=== PATIENT | male | born 1975 | race Caucasian/White ===

== ENCOUNTER → 2018-09-01 10:29 | Outpatient (CLI) | payer OTHER, SELFPAY ==
[2017-07-02 21:08] VITALS: BMI 33.0
[2018-09-01 12:27] LABS: AST(SGOT) 26 U/L (15-37); Alanine Aminotransfer ALT/SGPT 44 U/L (16-61); Albumin, Serum 3.7 g/dL (3.2-5.0); Alkaline Phosphatase 149 U/L (45-117); Anion Gap 7 (5-15); BUN 19 mg/dL (7-18); BUN/Creat Ratio 25.5 RATIO (10-20); Calcium,Total 8.7 mg/dL (8.5-10.1); Chloride 106 mmol/L (98-107); Cholesterol 102 mg/dL (200); Creatinine, Serum 0.75 mg/dL (0.70-1.30); EST Glomerular Filtration Rate 121 mL/min (>60); Est Glom Filt Rate - Afr Amer 147 mL/min (>60); Globulin 3.6 g/dL (2.2-4.2); Glucose 167 mg/dL (74-106); High Density Lipoprotein 31 mg/dL; Potassium 4.3 mmol/L (3.5-5.1); Protein, Total 7.3 g/dL (6.4-8.2); Sodium Level 139 mmol/L (136-145); Triglycerides 52 mg/dL; Very Low Density Lipoprotein 10 mg/dL (5-40)
[2018-09-01 12:31] LABS: Microalbumin,Random Urine 11.2 mg/L (NO RANGE EST.); Microalbumin:Creatinine Ratio 10.4 mg/g CRE (<30 mg/g CRE)
--- OUTSIDE RECORDS SUMMARY | 2018-10-27 06:38 | XMS RPT_ITS ---
:1975 Author Organization OHIP Care Team Providers Name Role Phone DR JUVENTINO MORFIN Admitting Unavailable SHELBIE, DR JUVENTINO George Attending Unavailable NO, DOCTOR ON Referring Unavailable DR JUVENTINO MORFIN Primary Care Unavailable SHITAL ARAUJO MD Consulting Unavailable PROVIDER, UNKNOWN Consulting Unavailable PROVIDER, UNKNOWN Consulting Unavailable Shital Araujo Attending Unavailable Shital Araujo Referring Unavailable Shital Araujo Primary Care Unavailable PROBLEMS PROBLEMS No Problem Records FoundPROCEDURES PROCEDURES No Procedure Records FoundRESULTS RESULTS COMPREHENSIVE METABOLIC Collected: 09/01/2018 Status: F Source: [facility] 10:39 AM [facility] REPOSITORY TYPE CODE TESTS RESULT OUT OF RANGE REFERENCE UNITS LAB L501.0100 74-106 mg/dL High GLU 167 Result Comment: Fasting Glucose result greater than or equal to 126 mg/dL suggests DIABETES MELLITUS per A.D.A. criteria. Please note revised GLUCOSE reference range effective 2017. LAB L501.1000 7-18 mg/dL High BUN 19 LAB L501.1100 0.70-1.30 mg/dL Normal CREAT,SERUM 0.75 Result Comment: The validity of the calculated GFR AND GFRAA in patients over 70 years has not been determined. Clinical correlation is essential. LAB L501.1110 >60 mL/min Normal EST GFR 121 Result Comment: Non- GFR Calc LAB L501.1115 >60 mL/min Normal EST GFR - AA 147 Result Comment: GFR Calc LAB L501.1300 10-20 RATIO High BUN/CRE 25.5 LAB L501.1500 6.4-8.2 g/dL T Normal PROT 7.3 LAB L501.1800 3.2-5.0 g/dL Normal ALB 3.7 LAB L501.1950 2.2-4.2 g/dL Normal GLOB 3.6 LAB L501.2000 0.9-2.4 RATIO Normal A/G 1.0 LAB L501.2200 8.5-10.1 mg/dL CA Normal 8.7 LAB L501.4100 15-37 U/L Normal AST 26 LAB L501.4305 45-117 U/L High ALK P 149 LAB L501.4405 16-61 U/L Normal ALT 44 LAB L501.4600 0.20-1.00 mg/dL T Normal BILI 0.60 LAB L501.5300 136-145 mmol/L NA Normal 139 LAB L501.5600 3.5-5.1 mmol/L K Normal 4.3 LAB L501.5900 98-107 mmol/L CL Normal 106 LAB L501.6100 21.0-32.0 mmol/L Normal CO2 26.0 LAB L501.6200 5-15 Normal GAP 7 Performed By: #### L500.4050, L500.4100 #### [facility] [address] [place], [place], [address] LIPID PROFILE Collected: 09/01/2018 Status: F Source: [place] 10:39 AM [facility] REPOSITORY TYPE CODE TESTS RESULT OUT OF RANGE REFERENCE UNITS LAB L501.4900 200 mg/dL Normal CHOL 102 Result Comment: <200 mg/dL Desirable 200-240 mg/dL Borderline >240 mg/dL High Risk LAB L501.5000 mg/dL Normal TRIG 52 Result Comment: The drugs N-Acetylcysteine and Metamizole may falsely depress this assay. Serum Triglycerides Reference Interval Normal <150 mg/dL Borderline high 150 - 199 mg/dL High 200 - 499 mg/dL Very High > or = 500 mg/dL LAB L501.6400 mg/dL Low HDL 31 Result Comment: The drugs N-Acetylcysteine and Metamizole may falsely depress this assay. Reference Range HDL <40 mg/dL Low HDL Cholesterol HDL >or= 60 mg/dL High HDL Cholesterol LAB L501.6500 0-130 mg/dL Normal LDL 61 LAB L501.6600 5-40 mg/dL Normal VLDL 10 Performed By: #### L500.4050, L500.4100 #### [facility] [address] [place], [address] MICROALB:CREAT Collected: 09/01/2018 Status: F Source: [place] [facility] 10:[address] [facility] TYPE CODE TESTS RESULT OUT OF RANGE REFERENCE UNITS LAB L501.1200 NO RANGE EST. mg/dL Normal UR CREAT 108.00 LAB L502.0500 NO RANGE EST. mg/L Normal 11.2 MICROALBUMIN ,UR LAB L502.0600 <30 mg/g CRE mg/g CRE Normal 10.4 MALB:CREAT Performed By: #### L502.0250 #### [facility] [address] [place], [address] EMERGENCY REPORT Observed: 06/05/2018 Status: F Source: [place]CD[place]NE[place] 7:[address] [facility] EMERGENCY ROOM REPORT NAME ACCOUNT SEX AGE ADMIT DISCHARGE PT MED. RECORD# NUMBER DATE DATE TYPE SHADY FARLEY [id number] M 42 06/01/18 06/01/18 3 [id number] ROOM: ER DATE OF : 1975 DICTATING PHYSICIAN: Juventino Morfin CHIEF COMPLAINT: Dental pain. HISTORY OF PRESENT ILLNESS: The patient states that he broke a tooth off a couple of months ago and has been babying it. However, over the past couple of days, he is getting some swelling and more pain to that area. He states that he needs to get the infection out before he can see the dentist. No fever or chills, nausea or vomiting. PAST MEDICAL HISTORY: Significant for a history of hypertension and diabetes. PAST SURGICAL HISTORY: No previous surgeries. MEDICATIONS: Per med rec list. ALLERGIES: He does not have any known allergies. SOCIAL HISTORY: He lives at home. He does not smoke or drink alcohol. He is employed, though states he is unable to go today because of the pain and swelling. PHYSICAL EXAMINATION: This is a 42-year-old mildly obese male alert, appropriate, does not appear toxic or in acute distress. There is no facial redness or swelling. Intraoral examination reveals some scattered cnsl-nn-rdwwfado caries. Left upper lateral incisor is fractured and decayed nearly to the gumline. There is no purulent drainage. There is some mild gingival swelling at the base and tenderness with palpation over that area. There are some other mild scattered caries and several previous teeth extracted. Gingiva appear generally good. Throat is normal without exudate. Neck is very supple without adenopathy. No other distress. Vital signs: Temperature 97.9, pulse 85, respirations 16, blood pressure 157/102. EMERGENCY DEPARTMENT COURSE AND TREATMENT: He was given a prescription for Pen-VK, ibuprofen 800 mg t.i.d., and a slip for work today. DIAGNOSIS: Dental caries with dental pain. PLAN/DISPOSITION: He is to follow up with his dentist in 3 to 5 days. Dictated By: Juventino Morfin MD Page 1 of 2 SHADY FARLEY Emergency Room Report 06/01/18 08:01 JOB #: [id number] Transcribed By: am 06/01/18 17:59 Electronically signed by: LEANDRA Morfin M.D. 06/05/18 07:02 Page 2 of 2 SHADY FARLEY Emergency Room Report PROGRESS Observed: 12/13/2017 Status: COMPLETED Source: [place] 11:52 AM [facility] REPOSITORY HNO ID: [id number] Author: Beth Moss Hardware Test Engineer Service: (none) Author Type: (none) Type: Progress Notes Filed: 12/13/2017 11:52 AM Note Text: Letter mailed to patient. PROGRESS Observed: 12/13/2017 Status: COMPLETED Source: [place] 11:50 AM [facility] REPOSITORY HNO ID: [id number] Author: Beth Moss Hardware Test Engineer Service: (none) Author Type: (none) Type: Progress Notes Filed: 12/13/2017 11:52 AM Note Text: Left detailed message for patient to return call #[phone] 3rd attempt. PROGRESS Observed: 12/06/2017 Status: COMPLETED Source: [place] 3:11 PM [facility] REPOSITORY HNO ID: [id number] Author: Beth Moss Cma Service: (none) Author Type: (none) Type: Progress Notes Filed: 12/13/2017 11:52 AM Note Text: Left detailed message for patient to return call #[phone]. PROGRESS Observed: 12/06/2017 Status: COMPLETED Source: [place] 3:11 PM [facility] REPOSITORY HNO ID: [id number] Author: Beth Moss Cma Service: (none) Author Type: (none) Type: Progress Notes Filed: 12/13/2017 11:52 AM Note Text: 12/01 - contact made - Left message for patient to return call #[phone] PROGRESS Observed: 12/01/2017 Status: COMPLETED Source: [place] 3:05 PM [facility] REPOSITORY HNO ID: [id number] Author: Beth [place] Hardware Test Engineer Service: (none) Author Type: (none) Type: Progress Notes Filed: 12/13/2017 11:52 AM Note Text: [facility] CARE GAP REGISTRY DOCUMENTATION (OUTSIDE TEAMLET) Provider Action/FYI: PSR Action/FYI: Patient identified by name and date of . Last BP/Labs: Blood Pressure: Last 3 Encounter BP Readings: Date: BP: 06/01/2017 148/88 07/14/2016 136/86 06/11/2014 140/90 Lipids: Cholesterol, Total (mg/dL) Date Value 06/14/2014 109 HDL Cholesterol (mg/dL) Date Value 06/14/2014 29 LDL Cholesterol (mg/dL) Date Value 06/14/2014 69 Triglyceride (mg/dL) Date Value 06/14/2014 57 HGB A1C: No results found for: HBA1C TSH: No results found for: TSH) ? Patient has the following care gap registry disease diagnosis:NONE - elevated Bp ? Patient hasn't been seen since 2013 ? Patient has the following open care gaps:none. Elevated bp ? Last office visit: 06/11/2014 ? Future office visit:Physical next available Health Maintenance Due: INFLUENZA(1) due on 06/03/2017 Bethjuliano Moss [facility] CNPTOUTREACH Observed: 12/01/2017 Status: COMPLETED Source: [place] 12:00 AM [facility] REPOSITORY Patient Outreach (INTMWS) MIGUELITOSHADY Shane ([id number]) 1975 M Date Time Provider Department 12/01/17 [facility] INTMWS During your visit today, we recorded the following information about you: Beth Moss [facility] 12/13/2017 11:52 AM Signed [facility] CARE GAP REGISTRY DOCUMENTATION (OUTSIDE TEAMLET) Provider Action/FYI: PSR Action/FYI: Patient identified by name and date of . Last BP/Labs: Blood Pressure: Last 3 Encounter BP Readings: Date: BP: 06/01/2017 148/88 07/14/2016 136/86 06/11/2014 140/90 Lipids: Cholesterol, Total (mg/dL) Date Value 06/14/2014 109 HDL Cholesterol (mg/dL) Date Value 06/14/2014 29 LDL Cholesterol (mg/dL) Date Value 06/14/2014 69 Triglyceride (mg/dL) Date Value 06/14/2014 57 HGB A1C: No results found for: HBA1C TSH: No results found for: TSH) ? Patient has the following care gap registry disease diagnosis:NONE - elevated Bp ? Patient hasn't been seen since 2013 ? Patient has the following open care gaps:none. Elevated bp ? Last office visit: 06/11/2014 ? Future office visit:Physical next available Health Maintenance Due: INFLUENZA(1) due on 06/03/2017 Beth Moss Hardware Test Engineer Beth [place] [facility] 12/13/2017 11:52 AM Signed 12/01 - contact made - Left message for patient to return call #[phone] Beth [place] 12/13/2017 11:52 AM Signed Left detailed message for patient to return call #[phone]. Beth [place] 12/13/2017 11:52 AM Signed Left detailed message for patient to return call #[phone] 3rd attempt. Beth [facility] 12/13/2017 11:52 AM Signed Letter mailed to patient. Allergies As of Date: 12/01/2017 (No Known Allergies) Date Reviewed: 06/01/2017 Reviewed by: Denis BrownleeHebrew Rehabilitation CenterDeyanira Muniz - Fully Assessed Reason for Visit: PHMA/Care Gap Outreach [3975] Problem List As Of Date 12/01/2017 Noted Resolved Elevated BP [VMV3824] INVALID FOR* More... Tobacco abuse disorder [Z72.0] INVALID FOR* Obesity (BMI 35.0-39.9 without comorbidity) [E6*INVALID FOR* More... Letter Text MOJGAN AGARWAL MD [address] [facility] [id number] [phone] Beth Moss Cma, [facility].A. December 13, 2017 Shady Farley [id number] [address] Dear Mr. Farley In an effort to serve your healthcare needs, it has come to the attention of MOJGAN AGARWAL MD, your Primary Care Provider, that you are overdue for routine health care. We've attempted to contact you and have been unsuccessful. Please call the office at [phone] to schedule an appointment for Physical. In addition, you are due for the following health maintenance(s) Health Maintenance Due: INFLUENZA(1) due on 06/03/2017 If any of these routine health care items were completed by an outside facility, please have that office fax the results to [phone] Attn: MOJGAN AGARWAL MD or bring the records with you to your appointment. We will gladly update your record. If you have any questions, please feel free to call the office at [phone] or message us via [employer]. Thank you for choosing the [facility]. Sincerely, Beth Moss Cma, [facility] M.A. (electronically signed to expedite mailing) Encounter Status:Closed by BETH MOSS CMA on 12/13/17 ALLERGIES ALLERGIES DATE TYPE / CODE NAME / CODE REACTION SEVERITY SOURCE 07/02/2017 Drug No Known Unknown [place] Allergy/[id number](S Allergies/F[address] [facility] [place]) [address](RXNORM) Hospital Repository Miscellaneous No Known Moderate Alex Pomerene Allergy/[id number](S Allergies ([facility]) Modifier) Hospital (Qualifier Repository Value) ENCOUNTERS ENCOUNTERS ADMIT/DISCHARGE ACCOUNT ADMITTING ENCOUNTER LOCATION SOURCE NUMBER CLASS 09/01/2018 [id number] Ambulatory [facility] ing:MTLAB Repository 06/01/[id number] JUVENTINO MORFIN Emergency BuildinR Alexjuani Mcdonnell 8 C oom: ERBed: B [facility] Repository PAYERS PAYERS ENCOUNTER GUARANTOR PAYER SUBSCRIBER SOURCE 09/01/2018 SHADY Lynn Primary Insurance:DALJIT WERNER: Yasemin [id number] ARELY [facility] [id number], Number: [facility] [id number]: [id number] Repository Date:[id number] () [id number] [address]CG: 09/01/2018 Secondary NOT GIVENUNK Yasemin Insurance:SELF PAY [facility] Number: Effective Repository Date:2018-09-01 06/01/2018 SHADY WERNER: Primary Insurance:Suzette WERNER: Alex Mcdonnell [id number] [facility] Number: [id number] [facility] [id number] [address], Date:Plan Name:[address], Repository [place] [address]: [place] [address] ()
== END ==
PROVIDERS: Family Provider Family Medicine; PCP Family Medicine; Referring Provider Family Medicine; Visit Provider Family Medicine
DX: E11.65 Type 2 diabetes mellitus with hyperglycemia (principal)
CPT/HCPCS: 36415; 80053; 80061; 82043; 82570

== ENCOUNTER → 2019-05-12 09:02 | Outpatient (CLI) | payer OTHER, SELFPAY ==
[2017-07-02 21:08] VITALS: BMI 33.0
[2019-05-12 10:08] LABS: ALB/GLOB Ratio 1.1 RATIO (0.9-2.4); AST(SGOT) 21 U/L (15-37); Alanine Aminotransfer ALT/SGPT 40 U/L (16-61); Albumin, Serum 3.4 g/dL (3.2-5.0); Alkaline Phosphatase 160 U/L (45-117); Anion Gap 7 (5-15); BUN 16 mg/dL (7-18); BUN/Creat Ratio 20.2 RATIO (10-20); Calcium,Total 8.6 mg/dL (8.5-10.1); Chloride 106 mmol/L (98-107); Cholesterol 88 mg/dL (200); Creatinine, Serum 0.79 mg/dL (0.70-1.30); EST Glomerular Filtration Rate 113 mL/min (>60); Est Glom Filt Rate - Afr Amer 136 mL/min (>60); Globulin 3.2 g/dL (2.2-4.2); Glucose 279 mg/dL (74-106); High Density Lipoprotein 34 mg/dL; Potassium 4.1 mmol/L (3.5-5.1); Protein, Total 6.6 g/dL (6.4-8.2); Sodium Level 138 mmol/L (136-145); Triglycerides 56 mg/dL; Very Low Density Lipoprotein 11 mg/dL (5-40)
[2019-05-12 10:18] LABS: Hemoglobin A1c 8.5 % (4.2-6.3)
[2019-05-12 10:28] LABS: Microalbumin,Random Urine 39.7 mg/L (NO RANGE EST.); Microalbumin:Creatinine Ratio 27.6 mg/g CRE (<30 mg/g CRE)
== END ==
PROVIDERS: Family Provider Family Medicine; PCP Family Medicine; Referring Provider Family Medicine; Visit Provider Family Medicine
DX: E11.9 Type 2 diabetes mellitus without complications (principal)
CPT/HCPCS: 36415; 80053; 80061; 82043; 82570; 83036

== ENCOUNTER → 2020-11-29 10:50 | Outpatient (CLI) | payer OTHER, SELFPAY ==
[2020-11-29 12:38] LABS: Absolute Lymphocyte Count 1.66 X10^3/uL (0.83-4.51); Absolute Neutrophil Count 5.3 X10^3/uL (2.0-7.7); Basophil# 0.06 X10^3/uL; Basophil% 0.8 % (0-1); Eosinophil# 0.19 X10^3/uL; Eosinophils% 2.5 % (0-5); Hematocrit 45.2 % (40-54); Hemoglobin A1c 9.8 % (3.8-5.6); Lymphocyte # 1.66 X10^3/ul (4.0); Lymphocyte % 21.9 % (19-41); Mean Corp Hgb Conc 33.2 g/dL (32-36); Mean Corpuscular Hgb 28.6 pg (27.0-32.0); Mean Corpuscular Volume 86.1 fL (80-94); Mean Platelet Vol. 12.8 fl (6.2-12.0); Monocyte# 0.36 X10^3/uL; Monocyte% 4.7 % (0-10); NRBC Flagged by Analyzer 0 % (0-5); Neutrophil # 5.29 X10^3/uL (2.7-7.7); Neutrophil % 69.8 % (47-70); Platelet Count 141 K/mm3 (150-450); RBC Distribution Width CV 12.7 % (11.6-14.6); RBC Distribution Width SD 39.8 fl (35.1-43.9); Red Blood Count 5.25 M/mm3 (4.6-6.2); White Blood Count 7.6 K/mm3 (4.4-11.0)
[2020-11-29 13:02] LABS: ALB/GLOB Ratio 1.1 RATIO (0.9-2.4); AST(SGOT) 32 U/L (15-37); Alanine Aminotransfer ALT/SGPT 54 U/L (16-61); Albumin, Serum 3.7 g/dL (3.2-5.0); Alkaline Phosphatase 134 U/L (45-117); Anion Gap 6 (5-15); BUN 15 mg/dL (7-18); BUN/Creat Ratio 18.2 RATIO (10-20); Chloride 104 mmol/L (98-107); Cholesterol 123 mg/dL (200); Creatinine, Serum 0.82 mg/dL (0.70-1.30); EST Glomerular Filtration Rate 107 mL/min (>60); Est Glom Filt Rate - Afr Amer 129 mL/min (>60); Globulin 3.3 g/dL (2.2-4.2); Glucose 285 mg/dL (74-106); High Density Lipoprotein 40 mg/dL; Potassium 4.2 mmol/L (3.5-5.1); Sodium Level 136 mmol/L (136-145); Triglycerides 89 mg/dL; Very Low Density Lipoprotein 18 mg/dL (5-40)
[2020-11-29 14:12] LABS: Microalbumin,Random Urine 27.2 mg/L (NO RANGE EST.); Microalbumin:Creatinine Ratio 23.4 mg/g CRE (<30 mg/g CRE)
== END ==
PROVIDERS: PCP Family Medicine; Visit Provider Family Medicine
DX: I10 Essential (primary) hypertension (principal); E11.9 Type 2 diabetes mellitus without complications
CPT/HCPCS: 36415; 80053; 80061; 82043; 82570; 83036; 85025

== ENCOUNTER → 2021-06-16 06:55 | Outpatient (CLI) | payer OTHER, SELFPAY | PROVIDERS: PCP Family Medicine; Visit Provider Physician Assistant Surgical | DX: Z11.52 Encounter for screening for COVID-19 (principal) | CPT/HCPCS: 87635; U0005; U0003 ==

== ENCOUNTER → 2022-05-15 | Outpatient (CLI) | payer OTHER, SELFPAY ==
[2022-05-15 09:43] LABS: Absolute Lymphocyte Count 1.91 X10^3/uL (0.83-4.51); Absolute Neutrophil Count 5.3 X10^3/uL (2.0-7.7); Basophil# 0.07 X10^3/uL; Basophil% 0.9 % (0-1); Eosinophil# 0.24 X10^3/uL; Hematocrit 47.5 % (40-54); Hemoglobin 15.8 g/dL (13.0-16.5); Lymphocyte # 1.91 X10^3/ul (0.83-4.51); Lymphocyte % 23.5 % (19-41); Mean Corp Hgb Conc 33.3 g/dL (32-36); Mean Corpuscular Hgb 28.5 pg (27.0-32.0); Mean Corpuscular Volume 85.7 fL (80-94); Mean Platelet Vol. 11.9 fl (6.2-12.0); Monocyte# 0.54 X10^3/uL; Monocyte% 6.6 % (0-10); NRBC Flagged by Analyzer 0 % (0-5); Neutrophil # 5.32 X10^3/uL (2.7-7.7); Neutrophil % 65.4 % (47-70); Platelet Count 134 K/mm3 (150-450); RBC Distribution Width CV 13.2 % (11.6-14.6); Red Blood Count 5.54 M/mm3 (4.6-6.2); White Blood Count 8.1 K/mm3 (4.4-11.0)
[2022-05-15 10:11] LABS: AST(SGOT) 28 U/L (15-37); Alanine Aminotransfer ALT/SGPT 43 U/L (16-61); Albumin, Serum 3.7 g/dL (3.2-5.0); Alkaline Phosphatase 108 U/L (45-117); Anion Gap 5 (5-15); BUN 19 mg/dL (7-18); BUN/Creat Ratio 24.7 RATIO (10-20); Calcium,Total 8.8 mg/dL (8.5-10.1); Chloride 107 mmol/L (98-107); Cholesterol 104 mg/dL (200); Creatinine, Serum 0.77 mg/dL (0.70-1.30); EST Glomerular Filtration Rate 115 mL/min (>60); Est Glom Filt Rate - Afr Amer 139 mL/min (>60); Globulin 3.7 g/dL (2.2-4.2); Glucose 135 mg/dL (74-106); High Density Lipoprotein 34 mg/dL; Potassium 4.2 mmol/L (3.5-5.1); Protein, Total 7.4 g/dL (6.4-8.2); Sodium Level 137 mmol/L (136-145); Triglycerides 54 mg/dL; Very Low Density Lipoprotein 11 mg/dL (5-40)
== END | disposition home or self-care (01) ==
LOC: LAB.FUTURE 08:34
PROVIDERS: PCP Family Medicine; Referring Provider Family Medicine; Visit Provider Family Medicine
DX: E11.9 Type 2 diabetes mellitus without complications (principal); I10 Essential (primary) hypertension
CPT/HCPCS: 36415; 80053; 80061; 85025

== ENCOUNTER → 2023-04-23 | Outpatient (CLI) | payer OTHER, SELFPAY ==
[2023-04-23 11:36] LABS: Absolute Lymphocyte Count 1.77 X10^3/uL (0.83-4.51); Absolute Neutrophil Count 5.8 X10^3/uL (2.0-7.7); Basophil# 0.06 X10^3/uL; Basophil% 0.7 % (0-1); Eosinophil# 0.24 X10^3/uL; Eosinophils% 2.9 % (0-5); Hematocrit 44.7 % (40-54); Hemoglobin 15.4 g/dL (13.0-16.5); Lymphocyte # 1.77 X10^3/ul (0.83-4.51); Lymphocyte % 21.1 % (19-41); Mean Corp Hgb Conc 34.5 g/dL (32-36); Mean Corpuscular Hgb 29.6 pg (27.0-32.0); Mean Corpuscular Volume 85.8 fL (80-94); Mean Platelet Vol. 12.2 fl (6.2-12.0); Monocyte# 0.49 X10^3/uL; Monocyte% 5.8 % (0-10); NRBC Flagged by Analyzer 0 % (0-5); Neutrophil # 5.79 X10^3/uL (2.7-7.7); Neutrophil % 68.9 % (47-70); Platelet Count 136 K/mm3 (150-450); RBC Distribution Width CV 13.5 % (11.6-14.6); RBC Distribution Width SD 42.4 fl (35.1-43.9); Red Blood Count 5.21 M/mm3 (4.6-6.2); White Blood Count 8.4 K/mm3 (4.4-11.0)
[2023-04-23 11:58] LABS: ALB/GLOB Ratio 1.1 RATIO (0.9-2.4); AST(SGOT) 28 U/L (15-37); Alanine Aminotransfer ALT/SGPT 43 U/L (16-61); Albumin, Serum 3.6 g/dL (3.2-5.0); Alkaline Phosphatase 119 U/L (45-117); Anion Gap 4 (5-15); BUN 21 mg/dL (7-18); Calcium,Total 8.7 mg/dL (8.5-10.1); Chloride 108 mmol/L (98-107); Cholesterol 95 mg/dL (200); Creatinine, Serum 0.72 mg/dL (0.70-1.30); EST Glomerular Filtration Rate 123 mL/min (>60); Est Glom Filt Rate - Afr Amer 149 mL/min (>60); Globulin 3.4 g/dL (2.2-4.2); Glucose 167 mg/dL (74-106); High Density Lipoprotein 35 mg/dL; Potassium 4.1 mmol/L (3.5-5.1); Sodium Level 136 mmol/L (136-145); Triglycerides 58 mg/dL; Very Low Density Lipoprotein 12 mg/dL (5-40)
[2023-04-23 12:52] LABS: Hemoglobin A1c 6.9 % (3.8-5.6)
== END | disposition home or self-care (01) ==
LOC: LAB 11:06
PROVIDERS: PCP Family Medicine; Referring Provider Family Medicine; Visit Provider Family Medicine
DX: E11.9 Type 2 diabetes mellitus without complications (principal); I10 Essential (primary) hypertension
CPT/HCPCS: 36415; 80053; 80061; 82043; 82570; 83036; 85025

== ENCOUNTER → 2024-02-22 | Outpatient (CLI) | payer OTHER, SELFPAY ==
[2024-02-22 10:17] LABS: Absolute Lymphocyte Count 2.08 X10^3/uL (0.83-4.51); Absolute Neutrophil Count 5.1 X10^3/uL (2.0-7.7); Basophil# 0.05 X10^3/uL; Basophil% 0.6 % (0-1); Eosinophil# 0.27 X10^3/uL; Eosinophils% 3.4 % (0-5); Hematocrit 46.1 % (40-54); Hemoglobin 15.6 g/dL (13.0-16.5); Lymphocyte # 2.08 X10^3/ul (0.83-4.51); Mean Corp Hgb Conc 33.8 g/dL (32-36); Mean Corpuscular Hgb 28.8 pg (27.0-32.0); Mean Corpuscular Volume 85.2 fL (80-94); Mean Platelet Vol. 12.1 fl (6.2-12.0); Monocyte# 0.44 X10^3/uL; Monocyte% 5.5 % (0-10); NRBC Flagged by Analyzer 0 % (0-5); Neutrophil # 5.12 X10^3/uL (2.7-7.7); Neutrophil % 64.1 % (47-70); Platelet Count 149 K/mm3 (150-450); RBC Distribution Width CV 13.1 % (11.6-14.6); RBC Distribution Width SD 40.2 fl (35.1-43.9); Red Blood Count 5.41 M/mm3 (4.6-6.2)
[2024-02-22 10:39] LABS: Microalbumin,Random Urine 14.8 mg/L (NO RANGE EST.); Microalbumin:Creatinine Ratio 20.6 mg/g CRE (<30 mg/g CRE)
[2024-02-22 11:07] LABS: Hemoglobin A1c 6.6 % (3.8-5.6)
[2024-02-22 11:14] LABS: AST(SGOT) 31 U/L (15-37); Alanine Aminotransfer ALT/SGPT 48 U/L (16-61); Albumin, Serum 3.8 g/dL (3.2-5.0); Alkaline Phosphatase 115 U/L (45-117); Anion Gap 6 (5-15); BUN 12 mg/dL (7-18); BUN/Creat Ratio 17.2 RATIO (10-20); Calcium,Total 9.3 mg/dL (8.5-10.1); Chloride 108 mmol/L (98-107); Cholesterol 117 mg/dL (200); EST Glomerular Filtration Rate 128 mL/min (>60); Est Glom Filt Rate - Afr Amer 155 mL/min (>60); Globulin 3.8 g/dL (2.2-4.2); Glucose 148 mg/dL (74-106); High Density Lipoprotein 40 mg/dL; Potassium 3.7 mmol/L (3.5-5.1); Protein, Total 7.6 g/dL (6.4-8.2); Sodium Level 137 mmol/L (136-145); Triglycerides 61 mg/dL; Very Low Density Lipoprotein 12 mg/dL (5-40)
== END | disposition home or self-care (01) ==
LOC: BFHLAB 08:50
PROVIDERS: PCP Family Medicine; Referring Provider Family Medicine; Visit Provider Family Medicine
DX: Z00.00 Encounter for general adult medical examination without abnormal findings (principal); E11.9 Type 2 diabetes mellitus without complications; I10 Essential (primary) hypertension; R42 Dizziness and giddiness
CPT/HCPCS: 36415; 80053; 80061; 82043; 82570; 83036; 85025

== ENCOUNTER → 2025-06-22 | Outpatient (CLI) | payer OTHER, SELFPAY ==
--- OUTSIDE RECORDS SUMMARY | 2025-06-22 08:27 | XMS RPT_ITS | CCD ---
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 Isaacs Primary Care Provider Dr. Shital Araujo MD Referring Provider [phone] Jesse Serrato Attending Provider Ros ECHVEARRIA-Shelton George Attending Provider Shital Araujo Primary Care Unavailable Mao Schrader Attending Unavailable Shital Araujo Referring Unavailable Shital Araujo Primary Care Unavailable Sony Osborn Attending Unavailable Shital Araujo Referring Unavailable Shelton Sommer NP Attending Unavailable Shital Araujo Primary Care Unavailable Shital Araujo Primary Care Unavailable Shital Araujo Attending Unavailable Shital Araujo Referring Unavailable Shital Araujo Primary Care Unavailable Jesse Serrato Attending Unavailable Medications Current Medications Medication Drug Class(es) Dates Sig (Normalized) Sig (Original) doxycycline hyclate 100 mg oral capsule (1 source) Tetracycline-class Drug Start: 04-28-2025 take 1 capsule by mouth twice daily Doxycycline Hyclate 100 mg capsule Active 100 mg PO TWICE A DAY 14 7 0 April 28, 2025 12:00am May 04, 2025 12:00am empagliflozin 10 mg oral tablet (1 source) Sodium-Glucose Cotransporter 2 Inhibitor Start: 02-15-2023 take 1 tablet by mouth once daily Empagliflozin (Jardiance) 10 mg tablet Active 10 mg PO DAILY February 15, 2023 12:00am fexofenadine hydrochloride 180 mg oral tablet (1 source) Histamine-1 Receptor Antagonist Start: 01-20-2024 take 1 tablet by mouth every twenty-four hours Fexofenadine (Luz Allergy) 180 mg tablet Active 180 mg PO Q24H 30 0 January 20, 2024 12:00am glipiZIDE er 5 mg 24 hr extended release oral tablet (1 source) Sulfonylurea Start: 02-15-2023 take 1 tablet by mouth once daily Glipizide 5 mg tablet extended release 24hr Active 15 mg PO DAILY February 15, 2023 12:00am hydroCHLOROthiazide 12.5 mg / lisinopril 10 mg oral tablet (3 sources) Thiazide Diuretic, Angiotensin Converting Enzyme Inhibitor Start: 02-15-2023 Lisinopril-Hydroc hlorothiazide 10-12.5 mg tablet Active 1 {tbl} PO DAILY February 15, 2023 12:00am Start: 07-02-2017 End: 06-16-2021 take 1 tablet by mouth once daily Lisinopril-Hydrochlorothiazide (Zestoret ic 10/12.5 Tablet) 1 TABLET tablet Discontinued 1 {tbl} PO DAILY July 02, 2017 12:00am June 16, 2021 4:19pm [place] (Nk) (1 source) Start: 08-20-2021 [place] (Nk) A ctive August 20, 2021 1:00am Completed/Discontinued Medications Medication Drug Class(es) Dates Sig (Normalized) Sig (Original) amoxicillin 875 mg / clavulanate 125 mg oral tablet (3 sources) Penicillin-class Antibacterial Start: 02-15-2023 End: 02-25-2023 Amoxicillin-Pot Clavulanate 875-125 mg tablet Discontinued 1 {tbl} PO Q12H 20 10 0 February 15, 2023 12:00am February 24, 2023 12:00am February 25, 2023 12:04am Acute sinusitis, unspecified Start: 07-02-2017 End: 06-16-2021 take 1 tablet by mouth every twelve hours Amoxicillin-Pot Clavulanate 875 MG tablet Discontinued 875 mg PO Q12H 0 July 02, 2017 12:00am June 16, 2021 4:19pm methylPREDNISolone 4 mg oral tablet (1 source) Corticosteroid Start: 06-08-2024 End: 06-14-2024 take 1 tablet by mouth once Methylprednisolone (Medrol (Freddie)) 4 mg tablets,dose pack Discontinued 4 mg PO per package directions 21 6 0 June 08, 2024 12:00am June 13, 2024 12:00am June 14, 2024 12:05am mupirocin 0.02 mg/mg topical ointment (1 source) RNA Synthetase Inhibitor Antibacterial Start: 01-23-2025 End: 04-28-2025 Mupirocin 2 % ointment Discontinued 1 NMA TOPICAL TWICE A DAY January 23, 2025 12:00am April 28, 2025 11:06am Problems Active Problems Problem Classification Problem Date Documented Da te Episodic/Chronic Diabetes mellitus without complication (3 sources) Diabetes mellitus; Translations: [Type 2 diabetes mellitus without complications] Onset: 05-03-2025 06-16-2021 Chronic Essential hypertension (3 sources) Hypertensive disorder; Translations: [Essential (primary) hypertension] Onset: 05-03-2025 06-16-2021 Chronic Immunizations and screening for infectious disease (2 sources) Contact with and (suspected) exposure to other viral communicable diseases; Translations: [Contact with or suspected exposure to other viral communicable disease] 06-16-2021 Episodic Mycoses (2 sources) Dermatophytosis; Translations: [Tinea corporis] 06-16-2021 Episodic Other fractures (1 source) Fracture of left rib; Translations: [Fracture of one rib, left side, initial encounter for closed fracture] 06-08-2024 Episodic Other lower respiratory disease (1 source) Rib pain; Translations: [Pleurodynia] 06-08-2024 Episodic Other upper respiratory disease (1 source) Seasonal allergy; Translations: [Other seasonal allergic rhinitis] 01-20-2024 Chronic Sprains and strains (3 sources) Strain of hamstring muscle; Translations: [Strain of muscle, fascia and tendon of the posterior muscle group at thigh level, right thigh, initial encounter] 06-08-2024 Episodic Past or Other Problems Problem Classification Problem Date Documented Da te Episodic/Chronic Other lower respiratory disease (1 source) Pleurodynia; Translations: [Pleurodynia] Onset: 06-08-2024 Episodic Results Test Name Value Interpretation Reference Range Facility Urgent Care Visit Reporton 0 04-28-2025 Urgent Care Visit Report [facility] [address], [address] [place] [address] OFFICE VISIT Date of Service: 04/28/25 MR#: [id number] Acct: [id number] Name: SHADY CALLAHAN Rep #: [id number] : 1975 Provider: PADMAJA rodgers Age/Sex: 49/M Location: [facility] Status: Signed Intake Vital Signs 06/08/24 08:16 04/28/25 11:07 Height 5 ft 9 in 5 ft 9 in Weight: 259 lb BMI 38.2 BP 140/78 H Blood Pressure Location Lt brachial Position Sitting Respiration 19 H Pulse 95 Pulse Source Monitor Temp 97.8 F Temp Source Temporal Pulse Oximetry (%) 98 Oxygen Delivery Method room air Intake Visit Reasons: RASH/R LEG Chief Complaint: RASH/R LEG Is patient in pain?: No Allergies No Known Allergies Allergy (Verified 04/28/25 11:06) Medications ???Medication ???Instructions ???Recorded ???Confirmed ???Type empagliflozin 10 mg tablet 10 mg PO DAILY 02/15/23 04/28/25 H istory (Jardiance) glipizide 5 mg tablet, extended 15 mg PO DAILY 02/15/23 04/28/25 H istory release 24 hr lisinopril 10 1 tab PO DAILY 02/15/23 04/28/25 H istory mg-hydrochlorothiazide 12.5 mg tablet fexofenadine 180 mg tablet 180 mg PO Q24H #30 tabs 01/20/24 0 04/28/25 Rx (Luz Allergy) doxycycline hyclate 100 mg capsule 100 mg PO BID 7 days #14 caps 04/28/25 Rx Nurse's Note: pt reports that he noted a rash on his posterior right leg. pt reports that he has been applying rubbing alcohol to the area. pt denies knowledge of injury or bug bite. pt reports that he is diabetic and is seen for regular check ups with his PCP Dr. Araujo. pt states he is scheduled to see his PCP this Tuesday however was concerned about waiting til then to have his leg examined. [facility] Medical History Right hamstring muscle strain Diabetes HTN (hypertension) Family History Other Cancer Heart disease Hypertension Social History Smoking Status: Former smoker HPI HPI Chief Complaint: RASH/R LEG Details: SHADY CALLAHAN, is a 49 M who presents to the office today for concerns regarding a rash. This is located on his posterior right leg. He is applying rubbing alcohol to such area. He denies any known injury or bug bite. He does express concerns as a diabetic regarding such rash. He denies fever or chills. ROS Const Constitutional: No body ache, chills, fatigue, fever(s), headache(s) or change in appetite Eyes Eyes: No blurry vision, change in vision, double vision, irritation, discharge, vision loss, dry eyes, bulging eyes, floaters, visual disturbances, eye pain, Light sensitivity, spots in vision, tunnel vision or other ENT ENT: No ear or mastoid pain, ear discharge, ear pressure, tinnitus, dizziness/vertigo, nosebleed/epistaxis, nasal congestion, nose pain, sinus pressure, sinus pain, nasal discharge, post nasal drip, headache(s), facial pain, dental pain, difficulty swallowing, bad breath, hoarseness, lip swelling, mouth lesions, mouth pain, neck pain, sore throat, tongue swelling or throat swelling Resp Respiratory: No cough, change in phlegm color, chest congestion, hemoptysis, pain on inspiration, shortness of breath, pain with cough, stridor or wheezing Cardio Cardiology: No chest pain at rest, chest pain with exertion, shortness of breath, dyspnea on exertion or lightheadedness Gastro GI: No abdominal pain, change in bowel habits or difficulty swallowing Genitourinary Male: No burning urination or urinary frequency Musc Musculoskeletal: No joint pain or neck pain Skin Skin: No rash Neuro Neurology: No headache(s) or visual disturbances Psych Psychiatric: No change in appetite Endo Endocrine: No fatigue Aller/Imm Allergy/Immunologic: No lip swelling, throat swelling, tongue swelling or wheezing Exam Const General: cooperative, healthy appearing, comfortable and no acute distress Orientation: alert, awake and oriented x3 HENMT Head: normal to inspection and normocephalic Ears: hearing grossly normal bilaterally, external ears normal and TM's normal bilaterally Nose: external nose normal, nares normal and no nasal discharge Face and sinus: normal facial exam and sinuses nontender Mouth: oral mucosae normal, lip normal, tongue normal, oropharynx normal and moist mucous membranes Throat: posterior oropharynx normal, tonsils normal, uvula midline and no postnasal drainage Eyes General: appearance normal, both eyes and all related structures Neck Neck: normal visual inspection and no lymphadenopathy Carotids: normal carotid upstroke Lymphatic: no lymphadenopathy noted Chest Chest palpation inspection: normal inspection (more content not included)... Normal [facility] Urgent Care Visit Reporton 0 01-23-2025 Urgent Care Visit Report [facility] [address], [address] [place] [address] OFFICE VISIT Date of Service: 01/23/25 MR#: [id number] Acct: [id number] Name: SHADY CALLAHAN Rep #: [id number] : 1975 Provider: LILIAM Davis Age/Sex: 49/M Location: [facility] Status: Signed Intake Vital Signs 06/08/24 08:16 01/23/25 16:40 Height 5 ft 9 in BP 118/66 Blood Pressure Location Lt brachial Position Sitting Respiration 15 Pulse 92 Pulse Source NIBP Temp 97.9 F Temp Source Oral Pulse Oximetry (%) 96 Oxygen Delivery Method room air Intake Visit Reasons: RASH ON ABD Chief Complaint: abd rash Traffic Law Attorney Required: No Is patient in pain?: No Allergies No Known Allergies Allergy (Verified 01/23/25 16:40) Have you fallen in the past year?: No Nurse's Note: rash to abd just inferior to umbilicus x 2-3 days with itching. denies additional areas of concern, denies pain, denies fever. [facility] Medical History Diabetes HTN (hypertension) Right hamstring muscle strain Family History Other Cancer Heart disease Hypertension Social History Smoking Status: Former smoker HPI HPI Chief Complaint: abd rash Details: SHADY CALLAHAN, is a 49 M who presents to the office today for initial evaluation at the [facility] for approximately 3 to 4 day history of progressively worsening clustered erythematous base pinpoint lesions with honey colored crusting to several of the lesions of unknown etiology. Patient notes using no [id number] products to assist . No other/similar rashes elsewhere on his body so states. Patient is accompanied by meter repairer who verifies all the above. No other associated symptoms and no other alleviating/aggravating factors. ROS Const Constitutional: No other (As above) Exam Const General: cooperative, healthy appearing and no acute distress Nutritional Appearance: average body habitus Orientation: alert and awake HENSD Head: normal to inspection Ears: hearing grossly normal bilaterally and external ears normal Nose: external nose normal and no nasal discharge Neck Neck: normal visual inspection, no lymphadenopathy, no meningeal signs and supple Resp Effort Inspection: normal respiratory effort and able to speak in complete sentences Cardio Rate: regular rate Pulses: radial pulses present Skin Other: clustered erythematous base pinpoint lesions with honey colored crusting approximately 2 cm below umbilicus Neuro General: patient alert and patient awake Cognition: normal cognition Speech: speech normal Psych Appearance: grossly normal Mental Status: mental status grossly normal Mood: congruent mood Affect: normal affect Speech and Movement: speech and movement normal Attitude: cooperative Diagnoses Impetigo L01.00 Assessment and Plan Assessment and Plan (1) Impetigo: Status: Acute Plan: Mupirocin ointment as prescribed today. Wound care as instructed today. Follow-up with PCP in 3 to 5 days should symptoms not improve, sooner should symptoms only worsen or any other concerns develop. Patient and meter repairer both state acknowledging understanding all the above. Coding Level of Care Code Off vis,est,level 3 Assessment and Plan Assessment and Plan Medications: New mupirocin 2% 1 applic topical BID 22 grams 0RF Clinical Quality Measures Falls Risk Screening/Assistive Devices Have you fallen in the past year?: No 01/23/25 2362 Date Jesse Henning Signature: Date (if applicable) CC: Normal [facility] Ribs Unil 2V No CXRon 2023 Ribs Unil 2V No CXR [facility] [address] [facility] [place] [address] Ribs Unil 2V No CXR MR#: [id number] Acct: [id number] Name: SHADY CALLHAAN Rep #: [id number] : 1975 M 48 From: Michael peters MD PCP: Dr. Shital Araujo MD Status: DEP AMB Study: Ribs Unil 2V No CXR Date of Exam: 06/08/24 Exam# [id number] Ordering Dr: Sony Rosario [id number] STUDY: X-RAY - UNILATERAL RIBS ( LEFT ) REASON FOR EXAM: Male, 48 years old. Rib pain TECHNIQUE: 4 view(s) of the ribs. COMPARISON: None. FINDINGS: There is an undisplaced fracture of the left eighth rib anterolaterally. The visualized lung is clear and expanded. RAD/Ribs Unil 2V No CXR IMPRESSION: Nondisplaced fracture along the anterolateral aspect of the left eighth rib. Electronically Signed: Michael Daly MD at 8:52 EDT , CC: LILIAM Ramos; Dr. Shital Araujo MD Induction Machine Operator: Signed Normal [facility] Urgent Care Visit Reporton 0 06-08-2024 Urgent Care Visit Report [facility] [address], [address] [place] [id number] OFFICE VISIT Date of Service: 06/08/24 MR#: [id number] Acct: [id number] Name: SHADY CALLAHAN Rep #: [id number] : 1975 Provider: LILIAM Ramos Age/Sex: 48/M Location: [facility] Status: Signed Intake Vital Signs 06/16/21 16:18 06/08/24 08:16 06/08/24 08:31 Height 5 ft 9 in 5 ft 9 in BP 126/60 H Blood Pressure Location Lt brachial Position Sitting Respiration 17 Pulse 85 Pulse Source NIBP Temp 98.6 F Temp Source Temporal Pulse Oximetry (%) 98 Oxygen Delivery Method room air Intake Visit Reasons: RIB PAIN L SIDE Chief Complaint: left rib pain Traffic Law Attorney Required: No Is patient in pain?: Yes Allergies No Known Allergies Allergy (Verified 06/08/24 08:31) Nurse's Note: left rib pain x 1 week. working in yard and raking etc, felt pop in left ribs with sharp pain. has had pain ever since despite home therapies. worse with cough, sneeze, deep breath. denies injury or fall PFSH Medical History Diabetes HTN (hypertension) Right hamstring muscle strain Family History Other Cancer Heart disease Hypertension Social History Smoking Status: Former smoker HPI HPI Chief Complaint: left rib pain Details: SHADY CALLAHAN, is a 48 M who presents to the office today for complaint of left rib pain for the past week. Patient states he was doing yard work and bent over to cloth picker a hose feeling a pop on his left rib area and has had pain since. He states not much improvement of the pain unless he takes ibuprofen or Tylenol and states that he is not able to sleep on that side due to the pain. He states the pain is made worse with coughing or sneezing or taking a deep breath. He denies shortness of breath or difficulty breathing. No other associated symptoms or alleviating/aggravating factors. ROS Const Constitutional: No other (As above) Exam Const General: cooperative and healthy appearing Chest Chest palpation inspection: tenderness rib left anterior-axillary line Resp Effort Inspection: normal respiratory effort Auscultation: Bilateral: Clear to Auscultation Cardio Rate: regular rate Skin General: no rashes or lesions noted Neuro General: patient alert Psych Appearance: grossly normal Mental Status: mental status grossly normal Coding Level of Care Code Off vis,est,level 4 Diagnoses Rib pain on left side R07.81 Intercostal muscle strain S29.011A Left rib fracture S22.32XA Assessment and Plan Assessment and Plan (1) Rib pain on left side: Status: Acute (2) Intercostal muscle strain: Status: Acute (3) Left rib fracture: Status: Acute Orders: Orders Ribs Unil 2V No CXR Today R07.81 - Pleurodynia Medications: New methylprednisolone (Medrol (Freddie)) 4 mg PO PER PKG DIR 6 days 21 tabs 0RF Plan X-rays of the left ribs read and interpreted by myself finding rib suspicious of fracture that is nondisplaced, awaiting radiology interpretation at time of patient discharge. Medrol Dosepak as prescribed today. Patient advised of symptomatic management techniques as well as potential red flags and when appropriate to report to the ED. Patient advised to use ibuprofen or Tylenol as needed for pain unless contraindicated. Advised to follow-up with primary care and 2 to 3 weeks if no better or sooner if worse. Patient verbalized understanding and agreement with all the above. 06/08/24 09 Date Sony RICKETTS Cosignbeatris Signature: Date (if applicable) CC: Normal [facility] Absolute lymphocyte counton 05-15-2022 Lymphocytes Auto (Unsp spec) [#/Vol] 1.91 10*3/uL 0.83-4.51 [facility] Work Phone: Basophil percentageon 2021 Basophils/100 WBC (Bld) 0.9 % 0-1 [facility] Work Phone: Bilirubin [Mass/Vol] 0.80 mg/dL 0.20-1.00 [facility] Work Phone: Comment on above: For patients on eltr ombopag therapy, use of Dimension [place] TBIL is not recommended. Chloride [Moles/Vol] 107 mmol/L 98-107 [facility] Work Phone: Cholesterol [Mass/Vol] 104 mg/dL <200 [facility] Work Phone: Comment on above: <200 mg/dL Desirable 200-240 mg/dL Borderline >240 mg/dL High Risk Eosinophils/100 WBC (Bld) 3.0 % 0-5 [facility] Work Phone: Glucose [Mass/Vol] 135 mg/dL 74-106 [facility] Work Phone: Comment on above: Fasting Glucose resu lt greater than or equal to 126 mg/dL suggests DIABETES MELLITUS per A.D.A. criteria. Neutrophils (Bld) [#/Vol] 5.3 10*3/uL 2.0-7.7 [facility] Work Phone: Neutrophils/100 WBC (Bld) 65.4 % 47-70 [facility] Work Phone: Potassium [Moles/Vol] 4.2 mmol/L 3.5-5.1 [facility] Work Phone: Protein [Mass/Vol] 7.4 g/dL 6.4-8.2 [facility] Work Phone: Sodium [Moles/Vol] 137 mmol/L 136-145 [facility] Work Phone: Triglyceride [Mass/Vol] 54 mg/dL <199 [facility] Work Phone: Comment on above: The drugs N-Acetylcy steine and Metamizole may falsely depress this assay.Serum Triglycerides Reference Interval Normal <150 mg/dL Borderline high 150 - 199 mg/dL High 200 - 499 mg/dL Very High > or = 500 mg/dL WBC (Bld) [#/Vol] 8.1 10*3/uL 4.4-11.0 [facility] Work Phone: Blood erythrocytes count (nu mber/volume)on 05-15-2022 RBC (Bld) [#/Vol] 5.54 10*6/uL 4.6-6.2 [facility] Work Phone: Blood hemoglobin measurement (mass/volume)on 05-15-2022 Hemoglobin (Bld) [Mass/Vol] 15.8 g/dL 13.0-16.5 [facility] Work Phone: Blood lymphocytes/100 leukoc yteson 05-15-2022 Lymphocytes/100 WBC (Bld) 23.5 % 19-41 [facility] Work Phone: Blood monocytes/100 leukocyt eson 05-15-2022 Monocytes/100 WBC (Bld) 6.6 % 0-10 [facility] Work Phone: Blood platelet mean volumeon 05-15-2022 Platelet mean volume (Bld) [Entitic vol] 11.9 fL 6.2-12.0 [facility] Work Phone: Determination of erythrocyte mean corpuscular volume (MCV)on 05-15-2022 MCV (RBC) [Entitic vol] 85.7 fL 80-94 [facility] Work Phone: Hematocrit Auto (Bld) [Volum e fraction]on 05-15-2022 Hematocrit (Bld) [Volume fraction] 47.5 % 40-54 [facility] Work Phone: Laboratory - Chemistry and C hemistry - challengeon 05-15-2022 ALP [Catalytic activity/Vol] 108 U/L 45-117 [facility] Work Phone: ALT [Catalytic activity/Vol] 43 U/L 16-61 [facility] Work Phone: CO2 [Moles/Vol] 25.0 mmol/L 21.0-32.0 [facility] Work Phone: Globulin (S) [Mass/Vol] 3.7 g/dL 2.2-4.2 [facility] Work Phone: Urea nitrogen/Creatinine [Mass ratio] 24.7 mg/mg 10-20 [facility] Work Phone: Laboratory - Hematology and Cell countson 05-15-2022 Erythrocyte distribution width (RBC) [Entitic vol] 41.0 fL 35.1-43.9 [facility] Work Phone: Erythrocyte distribution width (RBC) [Ratio] 13.2 % 11.6-14.6 [facility] Work Phone: Immature granulocytes/100 WBC (Bld) 0.600 % 0.0-0.9 [facility] Work Phone: Comment on above: IG% - Immature Granu locytes (promyelocytes, myelocytes and metamyelocytes) > 1% indicates that a LEFT SHIFT is Present. MCH (RBC) [Entitic mass] 28.5 pg 27.0-32.0 [facility] Work Phone: Nucleated RBC/100 WBC (Bld) [Ratio] 0 % 0-5 [facility] Work Phone: MCHC Auto (RBC) [Mass/Vol]on 05-15-2022 MCHC (RBC) [Mass/Vol] 33.3 g/dL 32-36 [facility] Work Phone: No Panel Informationon 05-15 Estimated GFR (MDRD) Amer 139 mL/min >60 [facility] Work Phone: Comment on above: GFR Calc Estimated GFR (MDRD) Non-Af Amer 115 mL/min >60 [facility] Work Phone: Comment on above: Non- GFR Calc Platelets bldon 05-15-2022 Platelets (Bld) [#/Vol] 134 10*3/uL 150-450 [facility] Work Phone: Serum or plasma albumin clement urement (mass/volume)on 05-15-2022 Albumin [Mass/Vol] 3.7 g/dL 3.2-5.0 [facility] Work Phone: Serum or plasma albumin/glob ulin mass ratioon 05-15-2022 Albumin/Globulin [Mass ratio] 1.0 {ratio} 0.9-2.4 [facility] Work Phone: Serum or plasma calcium clement urement (mass/volume)on 05-15-2022 Calcium [Mass/Vol] 8.8 mg/dL 8.5-10.1 [facility] Work Phone: Serum or plasma cholesterol in HDL measurement (mass/volume)on 05-15-2022 Cholesterol in HDL [Mass/Vol] 34 mg/dL >40 [facility] Work Phone: Comment on above: The drugs N-Acetylcy steine and Metamizole may falsely depress this assay. Reference Range HDL <40 mg/dL Low HDL Cholesterol HDL >or= 60 mg/dL High HDL Cholesterol Serum or plasma cholesterol in VLDL measurement (mass/volume)on 05-15-2022 Cholesterol in VLDL [Mass/Vol] 11 mg/dL 5-40 [facility] Work Phone: Serum or plasma creatinine m easurement (mass/volume)on 05-15-2022 Creatinine [Mass/Vol] 0.77 mg/dL 0.70-1.30 [facility] Work Phone: Comment on above: The validity of the calculated GFR & GFRAA in patients over 70 years has not been determined. Clinical correlation is essential. Serum or plasma low density lipoprotein (LDL) cholesterol measurement (mass/volume)on 05-15-2022 Cholesterol in LDL [Mass/Vol] 59 mg/dL 0-130 [facility] Work Phone: Serum or plasma urea nitroge n measurement (mass/volume)on 05-15-2022 Urea nitrogen [Mass/Vol] 19 mg/dL 7-18 [facility] Work Phone: Thin prep Papanicolaou smear with manual screeningon 05-15-2022 Thin prep Papanicolaou smear with manual screening 28 U/L 15-37 [facility] Work Phone: Thin prep Papanicolaou smear with manual screening 5 5-15 [facility] Work Phone: EMERGENCY REPORTon 2 EMERGENCY REPORT [facility] EMERGENCY ROOM REPORT NAME ACCOUNT SEX AGE ADMIT DISCHARGE PT MED. RECORD# NUMBER DATE DATE TYPE SHADY CALLAHAN [id number] Abhay 46 01/12/22 01/12/22 3 [id number] ROOM: ER DATE OF : 1975 DICTATING PHYSICIAN: Ike Myrick CHIEF COMPLAINT: Right shoulder pain. 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 He indicates over the past 2 to 3 days he has developed some pain in the right shoulder and very painful with movement. He indicates that there is one spot on the shoulder when he touches it that it causes significant pain. No specific injury that he knows of. He has had no chest pain and no fever. He denies any cough or shortness of breath. PAST MEDICAL HISTORY: Negative. FAMILY HISTORY: Please see nursing notes. SOCIAL HISTORY: He does not smoke or drink excessively. REVIEW OF SYSTEMS: General: He denies fever or chills or weight loss. Skin: Denies rash. Head: Denies trauma. No headache. Musculoskeletal: Pain in the right shoulder developed over the past 2 to 3 days with overuse. All other review of systems were negative except as noted. PHYSICAL EXAMINATION: VITAL SIGNS: Afebrile. Vital signs are stable. GENERAL EXAMINATION: The patient is alert in no obvious distress. SKIN: No rash. HEENT: Atraumatic and normocephalic. NECK: Nontender. CHEST: Clear. CARDIOVASCULAR EXAMINATION: Regular rate and rhythm. ABDOMEN: Soft with active bowel sounds and nontender. EXTREMITIES: He does have tenderness directly over the AC joint of the right shoulder to palpation. He also has pain with range of motion. No evidence of erythema. No tenderness over the elbow or the wrist. 2+ radial and ulnar pulses present. Motor and sensory intact in the radial, ulnar, and median nerve distribution. DIAGNOSTIC DATA: Laboratories ordered include EKG and right shoulder x-ray. Laboratory interpretation: The EKG showed a normal sinus rhythm with a rate of 95. The x-ray of the shoulder shows no evidence of fracture or dislocation. EMERGENCY DEPARTMENT COURSE AND TREATMENT: I discussed the findings with the patient. The EKG is normal and my suspicion for a cardiac etiology was low. Page 1 of 2 SHADY CALLAHAN [facility] Report SHADY CALLAHAN : 1975 The x-ray of the shoulder is negative. I suspect that he has overuse syndrome with a strain of the AC joint in the right shoulder. DIAGNOSES: 1. Acute shoulder strain. 2. Acute joint tenderness. PLAN/DISPOSITION: The patient will be discharged home on antiinflammatory medication. He will be given a sling and followup with his primary care physician. He is also instructed to use ice and elevation to the shoulder. Dictated By: Ike Myrick MD 01/12/22 08:39 JOB #: [id number] Transcribed By: am 01/13/22 08:11 Electronically signed by: Ike Myrick M.D. 01/16/22 10:40 Page 2 of 2 SHADY CALLAHAN Emergency Room Report Normal [facility] SHOULDER COMPLETE RTon 01-12 SHOULDER COMPLETE RT [place] [address] Patient: SHADY CALLAHAN. Phone#: : 1975 Age: 46 Gender: M Pt. Type: ER Account: [id number] Location: 052 Ordering: DR. JOEL LANTIGUA Exam Date: 01/12/2022/7:39 Family Phys: Charge Code: [id number] Physician: Frontier Order #: [id number] DLP Dose#: PROCEDURE: X-RAY SHOULDER COMPLETE RT MIN 2 VIEWS COMPARISON: None. INDICATIONS: Pain. FINDINGS: BONES: Degenerative changes are present at the acromioclavicular joint. SOFT TISSUES: Negative. No visible soft tissue swelling. EFFUSION: None visible. OTHER: Negative. CONCLUSION: 1. There is no evidence of acute abnormality. Degenerative changes are present at the acromioclavicular joint. Dictated by: Karlie Sales MD on 01/12/2022 at 8:37 Approved by: Karlie Sales MD on 01/12/2022 at 8:39 Normal [facility] EMERGENCY REPORTon 2 EMERGENCY REPORT [facility] EMERGENCY ROOM REPORT NAME ACCOUNT SEX AGE ADMIT DISCHARGE PT MED. RECORD# NUMBER DATE DATE TYPE SHADY CALLAHAN [id number] Abhay 45 10/09/21 10/09/21 3 [id number] ROOM: ER DATE OF : 1975 DICTATING PHYSICIAN: Héctor Lemus HISTORY OF PRESENT ILLNESS: This is a 45-year-old male who presents with concern for scrotal pain. He states that it is on the right. He states that his 80 pound dog jumped on his lap and stepped on the right side of his scrotum. He states that it is aching in nature and intermittent. There are no relieving or worsening factors. He denies any changes in his urinary habits. PAST MEDICAL HISTORY: Diabetes. PAST SURGICAL HISTORY: Noncontributory. SOCIAL HISTORY: Denies tobacco, alcohol or illicit drugs. REVIEW OF SYSTEMS: Ten systems are reviewed and negative except as mentioned above. PHYSICAL EXAMINATION: GENERAL: The patient appears well and nontoxic. HEENT: Head is normocephalic. LUNGS: Clear to auscultation bilaterally without wheezing. HEART: S1 and S2 appreciated without murmur. ABDOMEN: Soft and nontender. : Mild tenderness to palpation on the right scrotum. No overlying skin changes. Normal inspection of the penis. SKIN: Clear. PSYCHIATRIC: Mood and affect normal. DIAGNOSTIC DATA: Ultrasound shows a cyst without evidence of trauma. DIAGNOSIS: Scrotal pain. PLAN/DISPOSITION: The patient will be prescribed Naprosyn and given Urology followup if needed. Asked to return for new or worsening symptoms. The patient is agreeable and discharged home in stable condition. Dictated By: Héctor Lemus DO 10/09/21 10:26 JOB #: [id number] Transcribed By: antoine 10/10/21 10:40 Page 1 of 2 SHADY CALLAHAN Emergency Room Report SHADY CALLAHAN : 1975 Electronically signed by: E-SIGN: Héctor Lemus D.O. 10/21/21 09:07 Page 2 of 2 SHADY CALLAHAN Emergency Room Report Normal [facility] US SCROTALon 10-09-2021 [place] [address] Patient: SHADY CALLAHAN. Phone#: : 1975 Age: 45 Gender: M Pt. Type: ER Account: [id number] Location: [facility] Ordering: HÉCTOR LEMUS Exam Date: 10/09/2021/8:19 Family Phys: SHITAL ARAUJO Charge Code: 387365 Physician: Frontier Order #: [id number] DLP Dose#: PROCEDURE: SCROTAL ULTRASOUND COMPARISON: None. INDICATIONS: Right testicle pain TECHNIQUE: The scrotum was evaluated with garcia scale and color duplex Doppler sonography. FINDINGS: TESTES: Normal. No visible mass. Normal echotexture, size, and flow. Right testicle measures 4.3 x 2.3 x 2.9 cm. Left testicle measures 3.6 x 1.8 x 3.5 cm. EPIDIDYMIS: There is a 3 millimeter right epididymal cyst. The left epididymis is unremarkable. OTHER: Negative. CONCLUSION: 1. There is a 3 millimeter right epididymal cyst. 2. Testicles are unremarkable. Dictated by: Karlie Sales MD on 10/09/2021 at 9:26 Approved by: Karlie Sales MD on 10/09/2021 at 9:29 Normal [facility] PROGRESSon 12-13-2017 PROGRESS HNO ID: [id number] Author: Beth Moss Cma Service: (none) Author Type: (none) Type: Progress Notes Filed: 12/13/2017 11:52 AM Note Text: Letter mailed to patient. Normal [facility] PROGRESS HNO ID: [id number] Author: Beth Moss Cma Service: (none) Author Type: (none) Type: Progress Notes Filed: 12/13/2017 11:52 AM Note Text: Left detailed message for patient to return call #[phone] 3rd attempt. [facility] PROGRESSon 12-06-2017 PROGRESS HNO ID: [id number] Author: Beth Moss [facility] Service: (none) Author Type: (none) Type: Progress Notes Filed: 12/13/2017 11:52 AM Note Text: Left detailed message for patient to return call #[phone]. [facility] PROGRESS HNO ID: [id number] Author: Beth Moss [facility] Service: (none) Author Type: (none) Type: Progress Notes Filed: 12/13/2017 11:52 AM Note Text: 12/01 - contact made - Left message for patient to return call #[phone] [facility] CNPTOUTREACHon 12-01-2017 CNPTOUTREACH Patient Outreach (INTMWS) SHADY CALLAHAN ([id number]) 1975 MDate Time Provider Department12/01/17 BETH MOSS ([facility]) INTMWS During your visit today, we recorded the following information about you:Beth Moss [facility] 12/13/2017 11:52 AM [facility]IST[facility] DOCUMENTATION(OUTSIDE TEAMLET)Provider Action/FYI:PSR Action/FYI:Patient identified by name and date of .Last BP/Labs:Blood Pressure:Last 3 Encounter BP Readings: Date: BP: 06/01/2017 148/88 07/14/2016 136/86 06/11/2014 140/90Lipids:Cholestero l, Total (mg/dL)Date Value06/14/2014 109 HDL Cholesterol (mg/dL)Date Value06/14/2014 29 LDL Cholesterol (mg/dL)Date Value06/14/2014 69 Triglycerid e (mg/dL)Date Value06/14/2014 57 HGB A1C:No results found for: [id number]:No results found for: TSH)? Patient has the following care gap registry disease diagnosis:NONE - elevatedBp? Patient hasn't been seen since 2013? Patient has the following open care gaps:none. Elevated bp? Last office visit: 06/11/2014? Future office visit:Physical next availableHealth Maintenance Due:INFLUENZA(1) due on 06/03/2017[facility] 12/13/2017 11:52 AM Signed12/01 - contact made - Left message for patient to return call #[phone] Moss [facility] 12/13/2017 11:52 AM SignedLeft detailed message for patient to return call #[phone].Beth [facility] 12/13/2017 11:52 AM SignedLeft detailed message for patient to return call #[phone] attempt.Beth Moss [facility] 12/13/2017 11:52 AM SignedLetter mailed to patient.Allergies As of Date: 12/01/2017(No Known Allergies)Date Reviewed: 06/01/2017Reviewed by: Clint Munzi - Fully AssessedReason for Visit: PHMA/Care Gap Outreach [3605]Problem List As Of Date 12/01/2017 Noted Resolved Elevated BP [BEL2298] INVALID FOR* More... Tobacco abuse disorder [Z72.0] INVALID FOR* Obesity (BMI 35.0-39.9 without comorbidity) [E6*INVALID FOR* More...Letter Erik AGARWAL MD[address] [facility] [phone] [facility], Population Health M.A.December 13, 2017Shady Callahan[address] [address] [address] Mr. Briggs an effort to serve your healthcare needs, it has come to the attention Isabell AGARWAL MD, your Primary Care Provider, that [facility]. We've attempted to contact you and have beenunsuccessful.Please call the office at [phone] to schedule an appointment forPhysical.In addition, you are due for the following health maintenance(s)Health Maintenance Due:INFLUENZA(1) due on 06/03/2017If any of these routine health care items were completed by an outsidefacility, please have that office fax the results to [phone] Attn:MOJGAN AGARWAL MD or bring the records with you to your appointment. We willgladly update your record.If you have any questions, please feel free to call the office [phone] or message us via [employer]. Thank you for choosing the [facility].Sincere Beth langston Cma, [employer] M.A.(electronically signed to expedite mailing) Status:Closed by BETH MOSS CMA on 12/13/17 Normal [facility] PROGRESSon 12-01-2017 PROGRESS HNO ID: [id number]: Beth Moss CmaService: (none)Author Type: (none)Type: Progress NotesFiled: 12/13/2017 11:52 AMNote Text:[facility] CARE GAP REGISTRY DOCUMENTATION(OUTSIDE TEAMLET)Provider Action/FYI:PSR Action/FYI:Patient identified by name and date of .Last BP/Labs:Blood Pressure:Last 3 Encounter BP Readings: Date: BP: 06/01/2017 148/88 07/14/2016 136/86 06/11/2014 140/90Lipids:Cholestero l, Total (mg/dL)Date Value06/14/2014 109 HDL Cholesterol (mg/dL)Date Value06/14/2014 29 LDL Cholesterol (mg/dL)Date Value06/14/2014 69 Triglycerid e (mg/dL)Date Value06/14/2014 57 HGB A1C:No results found for: [id number]:No results found for: TSH)? Patient has the following care gap registry disease diagnosis:NONE -elevated Bp? Patient hasn't been seen since 2013? Patient has the following open care gaps:none. Elevated bp? Last office visit: 06/11/2014? Future office visit:Physical next availableHealth Maintenance Due:INFLUENZA(1) due on 06/03/2017Beth Moss Cma Normal [facility] CNOVon 06-01-2017 CNOV Office Visit (UCWSTR) SHADY CALLAHAN ([id number]) 1975 MDate Time Provider Department06/01/17 4:00 PM CLINT MUNIZ ([facility]) WS During your visit today, we recorded the following information about you: Temperature Pulse Respiration Blood pressure 99.6 degrees 68/minute 16/minute 148/88 Weight 121.2 kgClint Muniz CNP 06/01/2017 4:28 PM SignedHPIHPI Shadyangeles Callahan is a 41 year old male who presents today for CC offacial/sinus pressure. This started 7 days ago. Has tried allergy medicationwith little relief. Symptoms are worsened by being over heated at work. Riskfactors recently exposed to sick family member.Review of SystemsConstitutional: Negative for chills, fever and weight loss.HENT: Positive for congestion and sore throat. Negative for ear pain andnosebleeds.Eyes: Negative for pain, discharge and redness.Respiratory: Positive for cough. Negative for shortness of breath and wheezing.Musculoskeleta l: Negative for neck pain.Skin: Negative for itching and rash.PAST MEDICAL HISTORYDiagnosis Date- Strain of neck musclePAST SURGICAL HISTORYProcedure Laterality Date- REMOVE TONSILS/ADENOIDS,12+ Y/OALLERGIES Review of patient's allergies indicates no known allergies.MEDICATIONS No prescriptions on file.FAMILY HISTORYProblem Relation Age of Onset- Heart Father- Heart Paternal Grandmother- Cancer Paternal AuntSocial HistorySubstance Use Topics- Smoking status: Current Every Day Smoker Packs/day: 1.00 Years: 20.00 Types: Cigarettes- Smokeless tobacco: Not on file- Alcohol use NoPhysical ExamConstitutional: He is well-developed, well-nourished, and in no distress. Nodistress.HENT:Head: Normocephalic and atraumatic.Right Ear: Hearing, tympanic membrane, external ear and ear canal normal.Left Ear: Hearing, tympanic membrane, external ear and ear canal normal.Eyes: Conjunctivae, EOM and lids are normal. Pupils are equal, round, andreactive to light. Lids are everted and swept, no foreign bodies found. Righteye exhibits no discharge. Left eye exhibits no discharge. No scleral icterus.Neck: Trachea normal and normal range of motion. Neck supple.Cardiovascular: Normal rate, regular rhythm and normal heart sounds.Pulmonary/Chest: Effort normal and breath sounds normal.Lymphadenopathy: He has no cervical adenopathy.Skin: No rash noted. He is not diaphoretic.ASSESSMENT/ PLAN:1. Bacterial sinusitis - ICD9: 473.9, 041.9, ICD10: J32.9, B96.89- Will begin treatment with Augmentin 875 mg PO BID for 10 days- Supportive care with plenty of fluids, rest, and analgesia prn.- Follow up in 3-5 days if symptoms persist or worsen.- AMOXICILLIN 875 MG-POTASSIUM CLAVULANATE 125 MG TABLETPrescription instructions reviewed with patient as applicable. Patient advisedif symptoms do not improve or if symptoms worsen sooner, to contact the officefor further evaluation by either myself or their primary care physician.Potential red flag symptoms discussed with the patient. Reviewed appropriateaction plan to take if red flag symptoms occur. Patient agreeable to treatmentplan.Ubaldo Estrada CNP 06/01/2017 4:25 PM SignedSINUSITIS:You have sinusitis, an infection of the sinus cavities around the nose. Thisinfection usually follows a respiratory illness; it can also be related toallergies, changes in atmospheric pressure (flying, diving), or anything thatblocks nasal drainage. Symptoms include: headache, facial pain, a thick nasaldischarge, congestion, and cough.The treatment includes antibiotic therapy, increasing oral fluids, and painmedication if needed. Nose spray decongestants (Afrin, Kris-Synephrine) and oraldecongestants may be needed to reduce congestion and drainage. Rarely the sinusmust be irrigated to remove the infected material.Sinusitis can lead to serious complications by spreading to other areas such asthe eye or brain. Please call your doctor or return here right away if you haveany of the following more serious symptoms: - Unusual swelling around the eye or trouble seeing. - Increasing pain, severe headache, or toothache. - Nausea, vomiting, or unusual drowsiness.Referring Provider: SELF [[id number]]Allergies As of Date: 06/01/2017(No Known Allergies)Date Reviewed: 06/01/2017Reviewed by: Clint Reyes) Flavio - Fully AssessedReason for Visit: Head Congestion [234] Cmt: x 1 weekPrimary Visit Diagnosis:Bacterial sinusitis [J32.9, B96.89]Order(s):amoxici llin-clavulanic acid (AUGMENTIN) 875-125 mg per tabletTake 1 tablet by mouth twice daily for 10 days.Disp: 20 tabletRfl: 0Prescriptions as of 06/01/2017 Sig: AMOXICILLIN 875 MG-POTASSIUM * Take 1 tablet by mouth twice *Problem List As Of Date 06/01/2017 Noted Resolved Elevated BP [ERK3695] INVALID FOR* More... Tobacco abuse disorder [Z72.0] INVALID FOR* Obesity (BMI 35.0-39.9 without comorbidity) [E6*INVALID FOR* More... Other instructions from your clinician: SINUSITIS: You have sinusitis, an infection of the sinus cavities around the nose. This infection usually follows a respiratory illness; it can also be related to allergies, changes in atmospheric pressure (flying, diving), or anything that blocks nasal drainage. Symptoms include: headache, facial pain, a thick nasal discharge, congestion, and cough. The treatment includes antibiotic therapy, increasing oral fluids, and pain medication if needed. Nose spray decongestants (Afrin, Kris-Synephrine) and oral decongestants may be needed to reduce congestion and drainage. Rarely the sinus must be irrigated to remove the infected material. Sinusitis can lead to serious complications by spreading to other areas such as the eye or brain. Please call your doctor or return here right away if you have any of the following more serious symptoms: - Unusual swelling around the eye or trouble seeing. - Increasing pain, severe headache, or toothache. - Nausea, vomiting, or unusual drowsiness.Prescription s ordered this encounter Disp Refills Start End AMOXICILLIN 875 MG-POTASSIUM CLAVULA* 20 t* 0 06/01/2017 06/11/2017 Route: ORAL Sig: Take 1 tablet by mouth twice daily for 10 days. Status:Closed by CLINT MUNIZ CNP on 06/01/17 Normal [facility] PROGRESSon 06-01-2017 PROGRESS HNO ID: [id number]: Clint (Arden) Didiere: (none)Author Type: Nurse PractitionerType: Progress NotesFiled: 06/01/2017 4:28 PMNote Text:HPIHPI Shady Callahan is a 41 year old male who presents today for CC offacial/sinus pressure. This started 7 days ago. Has tried allergymedication with little relief. Symptoms are worsened by being over heatedat work. Risk factors recently exposed to sick family member.Review of SystemsConstitutional: Negative for chills, fever and weight loss.HENT: Positive for congestion and sore throat. Negative for ear pain andnosebleeds.Eyes: Negative for pain, discharge and redness.Respiratory: Positive for cough. Negative for shortness of breath andwheezing.Musculoskel etal: Negative for neck pain.Skin: Negative for itching and rash.PAST MEDICAL HISTORYDiagnosis Date- Strain of neck musclePAST SURGICAL HISTORYProcedure Laterality Date- REMOVE TONSILS/ADENOIDS,12+ Y/OALLERGIES Review of patient's allergies indicates no known allergies.MEDICATIONS No prescriptions on file.FAMILY HISTORYProblem Relation Age of Onset- Heart Father- Heart Paternal Grandmother- Cancer Paternal AuntSocial HistorySubstance Use Topics- Smoking status: Current Every Day Smoker Packs/day: 1.00 Years: 20.00 Types: Cigarettes- Smokeless tobacco: Not on file- Alcohol use NoPhysical ExamConstitutional: He is well-developed, well-nourished, and in no distress.No distress.HENT:Head: Normocephalic and atraumatic.Right Ear: Hearing, tympanic membrane, external ear and ear canal normal.Left Ear: Hearing, tympanic membrane, external ear and ear canal normal.Eyes: Conjunctivae, EOM and lids are normal. Pupils are equal, round, andreactive to light. Lids are everted and swept, no foreign bodies found.Right eye exhibits no discharge. Left eye exhibits no discharge. Noscleral icterus.Neck: Trachea normal and normal range of motion. Neck supple.Cardiovascular: Normal rate, regular rhythm and normal heart sounds.Pulmonary/Chest: Effort normal and breath sounds normal.Lymphadenopathy: He has no cervical adenopathy.Skin: No rash noted. He is not diaphoretic.ASSESSMENT/ PLAN:1. Bacterial sinusitis - ICD9: 473.9, 041.9, ICD10: J32.9, B96.89- Will begin treatment with Augmentin 875 mg PO BID for 10 days- Supportive care with plenty of fluids, rest, and analgesia prn.- Follow up in 3-5 days if symptoms persist or worsen.- AMOXICILLIN 875 MG-POTASSIUM CLAVULANATE 125 MG TABLETPrescription instructions reviewed with patient as applicable. Patientadvised if symptoms do not improve or if symptoms worsen sooner, tocontact the office for further evaluation by either myself or [facility]. Potential red flag symptoms discussed with thepatient. Reviewed appropriate action plan to take if red flag symptomsoccur. Patient agreeable to treatment plan.Clint Muniz CNP Normal [facility] Vital Signs Date Time Vital Sign Value Performing Clinician Ghada de leon 04-28-2025 11:07-0400 Body height 175.[address] Shital Araujo MD Work Phone: [facility] 04-28-2025 11:07-0400 Body mass index (BMI) [Ratio] 38.2 kg/m2 Dr. Shital Araujo MD Work Phone: [facility] 04-28-2025 11:07-0400 Body temperature 97.8 [degF] Dr. Shital Araujo MD Work Phone: [facility] 04-28-2025 11:07-0400 Body weight 117.[address] Shital Araujo MD Work Phone: [facility] 04-28-2025 11:07-0400 Diastolic blood pressure 78 mm[Hg] Dr. Shital Araujo MD Work Phone: [facility] 04-28-2025 11:07-0400 Heart rate 95 /min Dr. Shital Araujo MD Work Phone: [facility] 04-28-2025 11:07-0400 Respiratory rate 19 /min Dr. Shital Araujo MD Work Phone: [facility] 04-28-2025 11:07-0400 SaO2% (BldA) [Mass fraction] 98 % Dr. Shital Araujo MD Work Phone: [facility] 04-28-2025 11:07-0400 Systolic blood pressure 140 mm[Hg] Dr. Shital Araujo MD Work Phone: [facility] 01-23-2025 16:40-0400 Body temperature 97.9 [degF] Dr. Shital Araujo MD Work Phone: [facility] 01-23-2025 16:40-0400 Diastolic blood pressure 66 mm[Hg] Dr. Shital Araujo MD Work Phone: [facility] 01-23-2025 16:40-0400 Heart rate 92 /min Dr. Shital Araujo MD Work Phone: [facility] 01-23-2025 16:40-0400 Respiratory rate 15 /min Dr. Shital Araujo MD Work Phone: [facility] 01-23-2025 16:40-0400 SaO2% (BldA) [Mass fraction] 96 % Dr. Shital Araujo MD Work Phone: [facility] 01-23-2025 16:40-0400 Systolic blood pressure 118 mm[Hg] Dr. Shital Araujo MD Work Phone: [facility] Encounters Encounter Date Encounter Type Care Provider Facility Start: 05-03-2025 Encounter for genera l adult medical examination without abnormal findings Shital Araujo [facility] Start: 05-03-2025 ambulatory Shital Araujo Facility: [facility] Start: 04-28-2025 End: 04-28-2025 Patient encounter procedure Shel[place] Kenny Ros [facility] [facility] Work Phone: Start: 04-28-2025 End: 04-28-[address] Shital Araujo MD Work Phone: [facility] Start: 01-23-2025 End: 01-23-2025 Patient encounter procedure Jesse Carbone PA [facility] Work Phone: Start: 01-23-2025 End: 01-23-2025 ambulatory Shital Marthakimberley Facility:[facility] Start: 06-08-2024 End: 06-08-2024 ambulatory Shital Rajinder Facility:[facility] Start: 05-15-2022 End: 05-15-2022 Patient encounter procedure [facility],Felisha uture Start: 01-12-2022 End: 01-12-2022 Emergency department patient visit JOEL CANTRELL [facility] Start: 10-09-2021 End: 10-09-2021 Emergency department patient visit HÉCTOR LEMUS [facility] Start: 06-01-2017 End: 06-01-2017 Ambulatory DOYLE (MACHINE [employer] SE[employer]ER) SHITAL [facility] Payers Date Payer Category Payer Self-pay [id number] 2024 Unknown [id number] 1975 Unknown [id number] 1975 Unknown [id number] 2.16.84 [id number] Unknown [id number] Unknown [id number] 2.16.8 [id number] Unknown [id number] 2.16.8 [id number] Unknown [id number] 2.16. [id number] Unknown [id number] 2.16.8 [id number] Unknown [id number] 2.16.8 [id number] Social History Date Type Detail Facility Start: 08-20-[address] Tobacco smoking [address] [facility] Unknown if ever smoked [facility] Work Phone: Start: 1975 Sex Assigned At Male [facility] Start: 06-08-2024 [facility] Evaluation note Note Date & Type Note Facility Evaluation note No assessment information availa ble [facility] Work Phone: Reason for referral (narrative) Note Date & Type Note Facility Reason for referral (narrative) No reason for referral information available [facility] Work Phone: Summary Purpose Family History No Family History Records Found Relationship Condition Age at Onset Recorded Date/T mariajose Not Specified Cardiac disease Unknown Malignant neoplasm Unknown Hypertension Unknown Advance Directives No Advanced Directives Records Found Advance Directive Response Recorded Date/ Time Living Will No July 02, 2017 9:10pm Power of Invertebrate Paleontologist No June 9:10pm Chief Complaint and Reason for Visit Chief Complaint DM Chief Complaint Admit Date RASH ON ABD January 23, 2025 4:3 7pm RASH/R LEG April 28, 2025 11:0 2am Additional Source Comments (unrecognized sect ion and content) No Status Records FoundNo Status Records FoundNo Status Records Found INFORMATION SOURCE (unrecogn ized section and content) DATE CREATED AUTHOR 03/24/2018 [facility] DATE CREATED AUTHOR AUTHOR'S ORGANIZ ATION 01/17/2022 [facility] DATE CREATED AUTHOR AUTHOR'S ORGANIZ ATION 05/05/2025 [facility] Goals (unrecognized section and content) Goals may be documented in a n alternate sectionGoals may be documented in an alternate section Care Teams (unrecognized sec tion and content) Team Status: Active Member Role/Relationship Status Dates Dr. Shital Araujo MD Family Provider Active Dr. Shital Araujo MD Primary Care Provider Active Team Status: Inactive Member Role/Relationship Status Dates Dr. Shital Araujo MD Primary Care Provider Active Start: January 23, 2025 End: January 23, 2025 Dr. Shital Araujo MD Referring Provider Active Start: January 23, 2025 End: January 23, 2025 Jesse RICKETTS, PA Attending Provider Active Start: January 23, 2025 End: January 23, 2025 Team Status: Inactive Member Role/Relationship Status Dates Dr. Shital Araujo MD Primary Care Provider Active Start: April 28, 2025 End: April 28, 2025 Dr. Shital Araujo MD Referring Provider Active Start: April 28, 2025 End: April 28, 2025 Shelton Sommer CHEESE CUTTER, [employer]TER-C Attending Provider Active S tart: April 28, 2025 End: April 28, 2025 FOR RECORDS PERTAINING TO PATIENTS WHO ARE OR HAVE BEEN ENROLLED IN A CHEMICAL DEPENDENCY/SUBSTANCEABUSE PROGRAM, SOME INFORMATION MAY BE OMITTED. This clinical summary was aggregated from multiple sources. Caution should be exercised in using it in the provision of clinical care. This summary normalizes information from multiple sources, and as a consequence, information in this document may materially change the coding, format and clinical context of patient data. In addition, data may be omitted in some cases. CLINICAL DECISIONS SHOULD BE BASED ON THE PRIMARY CLINICAL RECORDS. [employer] provides no warranty or guarantee of the accuracy or completeness of information in this document.
[2025-06-22 09:25] LABS: Hematocrit 44.7 % (40-54); Hemoglobin 15.2 g/dL (13.0-16.5); Immature Granulocytes Count 0.060 X10^3/uL (0.0-0.0); Mean Corp Hgb Conc 34.0 g/dL (32-36); Mean Corpuscular Volume 86.3 fL (80-94); Mean Platelet Vol. 12.3 fl (6.2-12.0); NRBC Flagged by Analyzer 0 % (0-5); Platelet Count 131 K/mm3 (150-450); RBC Distribution Width CV 13.5 % (11.6-14.6); RBC Distribution Width SD 42.8 fl (35.1-43.9); Red Blood Count 5.18 M/mm3 (4.6-6.2); White Blood Count 8.5 K/mm3 (4.4-11.0)
[2025-06-22 10:28] LABS: AST(SGOT) 31 U/L (<=37); Alanine Aminotransfer ALT/SGPT 39 U/L (<=46); Albumin, Serum 4.3 g/dL (3.5-5.0); Alkaline Phosphatase 108 U/L (40-129); Anion Gap 10 (5-15); BUN 17 mg/dL (4-19); BUN/Creat Ratio 24.1 RATIO (10-20); Calcium,Total 9.5 mg/dL (7.6-11.0); Carbon Dioxide 20.5 mmol/L (21.0-32.0); Chloride 108 mmol/L (98-108); Cholesterol 134 mg/dL (<=200); Creatinine, Urine (random) 97.40 mg/dL (39.00-259.00); Globulin 2.6 g/dL (2.2-4.2); Glucose 166 mg/dL (70-99); Low Density Lipoprotein Calc. 76 mg/dL; Microalbumin,Random Urine 14.1 mg/L (<20 mg/L); Potassium 4.5 mmol/L (3.3-5.1); Triglycerides 91 mg/dL; Very Low Density Lipoprotein 18 mg/dL (5-40); cholesterol:hdl ratio screen 3.34
== END | disposition home or self-care (01) ==
LOC: LAB 08:24
PROVIDERS: PCP Family Medicine; Referring Provider Family Medicine; Visit Provider Family Medicine
DX: Z00.00 Encounter for general adult medical examination without abnormal findings (principal); E11.9 Type 2 diabetes mellitus without complications; I10 Essential (primary) hypertension
CPT/HCPCS: 36415; 80053; 80061; 82043; 82570; 85025